=== PATIENT | female | born 1985 | race Caucasian/White ===

== ENCOUNTER 2020-08-30 15:54 | Emergency (ER) | payer OTHER ==
[~2020-08-30] VITALS: Ht 175.3 cm; Wt 83.9 kg
[2020-08-30] MEDS ORDERED: AMOCLA875 PO (16:05)
== END 2020-08-30 16:07 | disposition home or self-care (01) ==
LOC: ER 15:54
DX: L03.213 Periorbital cellulitis (principal); F17.210 Nicotine dependence, cigarettes, uncomplicated
CPT/HCPCS: 99282